=== PATIENT | female | born 1955 | race Caucasian/White ===

== ENCOUNTER 2019-03-23 06:11 | Day surgery (SDC) | payer OTHER ==
[2019-03-23] MEDS ORDERED: fentaNYL 100 MCG/2 ML SDV ONE (07:19)
[2019-03-23] MEDS ORDERED: Propofol 200 MG/20 ML SDV ONE (07:19)
[2019-03-23] MEDS ORDERED: Midazolam 1 MG/ML 2 ML SDV ONE (07:19)
[2019-03-23] MEDS ORDERED: Sodium Chloride 0.9% 1,000 ML IV SCH (07:30)
[2019-03-23 09:56] VITALS: BP 117/66
--- NOTE | 2019-03-23 10:35 | OR ---
DATE OF PROCEDURE: 03/23/2019 SURGEON: Kolton Valencia MD PROCEDURE: Colonoscopy. FINDINGS: Diverticulosis, very mild, mostly limited to sigmoid colon. COMPLICATIONS: None. RADIOLOGY CT TECHNOLOGIST: None. ANESTHESIA: MAC. PREOPERATIVE DIAGNOSIS: Screening colonoscopy. POSTOPERATIVE DIAGNOSIS: Screening colonoscopy. RISKS: Risks, benefits, alternatives, and limitations including, but not limited to infection, bleeding, and perforation were explained to the patient, who wished to proceed. PROCEDURE IN DETAIL: The patient was placed in a left lateral decubitus position. Digital rectal exam was performed without abnormality. Scope was introduced and advanced atraumatically to the ileocecal valve. Photo was taken of this. Scope was brought back through the ascending, transverse, descending colon, and retroflexed. No evidence of old or new blood. No masses. No polyps. Diverticulosis would be described as mild, mostly limited to sigmoid colon without evidence of diverticulitis or bleeding. The patient tolerated the procedure well. Kolton Valencia MD /[id number]
== END 2019-03-23 09:30 | disposition home or self-care (01) ==
LOC: JP.SDS 06:11
PROVIDERS: ATTEND Surgery
DX: Z12.11 Encounter for screening for malignant neoplasm of colon (principal); K57.30 Diverticulosis of large intestine without perforation or abscess without bleeding; K21.9 Gastro-esophageal reflux disease without esophagitis; Z88.8 Allergy status to other drugs, medicaments and biological substances; Z86.010 Personal history of colon polyps
CPT/HCPCS: 45378; J2250; J2704; J3010; J7030

== ENCOUNTER 2023-04-16 07:23 | Day surgery (SDC) | payer MEDICARE, BC ==
[2023-04-16] MEDS ORDERED: Midazolam 1 MG/ML 2 ML SDV ONE (07:25)
[2023-04-16] MEDS ORDERED: Propofol 200 MG/20 ML SDV ONE (07:25)
[2023-04-16] MEDS ORDERED: fentaNYL 50 MCG/ML SDV ONE (07:26)
[2023-04-16] MEDS ORDERED: Lactated Ringers 1,000 ML IV SCH (08:00)
[2023-04-16 11:33] VITALS: BP 119/61; PULSE 59
== END 2023-04-16 11:34 | disposition home or self-care (01) ==
LOC: JP.SDS 07:23
PROVIDERS: ATTEND Student in an Organized Health Care Education/Training Program
DX: K21.9 Gastro-esophageal reflux disease without esophagitis (principal)
CPT/HCPCS: 43239; 88305; J2250; J2704; J3010; J7120

== ENCOUNTER 2024-06-30 06:41 | Day surgery (SDC) | payer MEDICARE, BC ==
[2024-06-30] MEDS ORDERED: Propofol 200 MG/20 ML SDV ONE (07:23)
[2024-06-30] MEDS ORDERED: Midazolam 1 MG/ML 2 ML SDV ONE (07:23)
[2024-06-30] MEDS ORDERED: fentaNYL 50 MCG/ML SDV ONE (07:23)
[2024-06-30] MEDS: Lactated Ringers 1,000 ML IV SCH (07:57)
[2024-06-30 09:33] VITALS: PULSE 57
[2024-06-30 09:51] VITALS: BP 98/56
== END 2024-06-30 10:00 | disposition home or self-care (01) ==
LOC: JP.SDS 06:41
PROVIDERS: ATTEND Family Medicine
DX: Z12.11 Encounter for screening for malignant neoplasm of colon (principal); K64.8 Other hemorrhoids; K21.9 Gastro-esophageal reflux disease without esophagitis; Z86.0100 Personal history of colon polyps, unspecified
CPT/HCPCS: G0105; J2250; J2704; J3010; J7120